=== PATIENT | male | born 2000 | race American Indian/Alaskan Native ===

== ENCOUNTER 2021-10-06 13:19 | Emergency (ER) | payer SELFPAY ==
[2021-10-06] MEDS ORDERED: SODIUM CHLORIDE 0.9% 1000 ML 1,000 ML IV ONE (13:53)
[2021-10-06] MEDS ORDERED: fentaNYL 100 MCG/2 ML INJ IV ONE (13:53)
[2021-10-06] MEDS ORDERED: ONDANSETRON 4 MG/2 ML INJ IV ONE (13:53)
--- NOTE | 2021-10-06 13:59 | Emergency Department Report ---
HPI - General Chief Complaint: Syncope Time Seen by Provider: 10/06/21 13:48 - HPI HPI: Room 5 The patient is a 21-year-old male present with chief complaint of abdominal pain. Patient states for the past 2 days he has had a constant diffuse abdominal pain and feeling as though his "stomach is caving in." Patient admits to nausea vomiting diarrhea. Patient denies history of fever. Patient denies sick contacts. The patient states his symptoms began approximate 1 hour after eating a beef to. The patient states another person also had a beef to but did not experience any symptoms. Patient currently gives his abdominal pain a score of 8/10. Apparently the patient had a syncopal episode while in the waiting room prior to being brought back to the ED room ED Past Medical Hx - Past Medical History Previous Medical History?: No - Surgical History Past Surgical History?: No - Family History Family history: no significant - Social History Smoking Status: Never Smoker Substance Use Type: None (Denies illicit drug use) - Medications Home Medications: Home Medications Medication Instructions Recorded Confirmed Last Taken Type Diphenoxylate/Atropine [Lomotil] 2 tab PO QID PRN #20 10/06/21 Unknown Rx HYDROcodone/APAP 5-325 [[place] 1 - 2 each PO Q6HR PRN #10 tablet 10/06/21 Unknown Rx 5/325] Promethazine [Phenergan] 25 mg PO Q6HR PRN #20 tab 10/06/21 Unknown Rx Promethazine [Phenergan] 25 mg HI Q6HR PRN #5 supp.rect 10/06/21 Unknown Rx ED Review of Systems ROS: Stated complaint: ABDOMINAL PAIN/VOMITING Other details as noted in HPI Constitutional: denies: fever Eyes: denies: eye pain ENT: denies: throat pain Respiratory: no symptoms reported Cardiovascular: denies: chest pain Endocrine: no symptoms reported Gastrointestinal: abdominal pain, nausea, vomiting, diarrhea Genitourinary: denies: dysuria Musculoskeletal: denies: back pain Neurological: denies: headache Physical Exam - Physical Exam Vital Signs: Vital Signs 10/06/21 13:43 Temperature 98.9 F Pulse Rate 85 Respiratory 18 Rate Blood Pressure 144/65 O2 Sat by Pulse 99 Oximetry Physical Exam: GENERAL: The patient is well-developed well-nourished male lying on stretcher appearing to be in moderate discomfort with occasional dry heaves. [] HEENT: Normocephalic. Atraumatic. Extraocular motions are intact. Patient has moist mucous membranes. NECK: Supple. Trachea midline CHEST/LUNGS: Clear to auscultation. There is no respiratory distress noted. HEART/CARDIOVASCULAR: Regular. There is no tachycardia. There is no gallop rub or murmur. ABDOMEN: Abdomen is soft, exhibits diffuse discomfort to palpation. There is no rebound or guarding. Patient has normal bowel sounds. There is no abdominal distention. SKIN: There is no rash. There is no edema. There is no diaphoresis. NEURO: The patient is awake, alert, and oriented. The patient is cooperative. The patient has no focal neurologic deficits. The patient has normal speech. GCS 15 MUSCULOSKELETAL:There is no evidence of acute injury. ED Course Vital Signs 10/06/21 13:43 Temperature 98.9 F Pulse Rate 85 Respiratory 18 Rate Blood Pressure 144/65 O2 Sat by Pulse 99 Oximetry - Reevaluation(s) Reevaluation #1: 10/06/21 19:11 Patient tolerating p.o. Patient is further history states this is the fourth episode of the same this month. Patient states he was never given a diagnosis. Patient improved at this time but we will give him follow-up with gastroenterology as well as a primary physician for further evaluation ED Medical Decision Making - Lab Data Result diagrams: 10/06/21 14:08 10/06/21 16:23 - Radiology Data Radiology results: report reviewed (CT abdomen pelvis), image reviewed (CT abdomen pelvis) [facility] [address] [place] [address] Cat Scan Report Signed Patient: GERARDO CASTRO MR#: [id number] : 1 Acct:[id number] Age/Sex: 21 / M ADM Date: 10/06/21 Loc: ED Attending Dr: Ordering Physician: CLAYTON NIX MD Date of Service: 10/06/21 Procedure(s): CT abdomen pelvis w con Accession Number(s): [id number] cc: CLAYTON NIX MD - Differential Diagnosis Gastroenteritis, vasovagal syncope, dehydration, peptic ulcer disease, panc Critical care attestation.: If time is entered above; I have spent that time in minutes in the direct care of this critically ill patient, excluding procedure time. ED Disposition Clinical Impression: Acute abdominal pain, Nausea vomiting and diarrhea Disposition: 01 HOME / SELF CARE / HOMELESS Is pt being admited?: No Does the pt Need Aspirin: No Condition: Stable Instructions: Nausea and Vomiting, Adult, [id number], Food Choices to Help Relieve Diarrhea, Adult, Diarrhea, Adult, [id number] Additional Instructions: Return to the emergency department should you develop worsening symptoms, logan bility to tolerate food or liquids, high fever or any other concerns Prescriptions: Diphenoxylate/Atropine [Lomotil] 2 tab PO QID PRN #20 PRN Reason: Diarrhea HYDROcodone/APAP 5-325 [[place] 5/325] 1 - 2 each PO Q6HR PRN #10 tablet PRN Reason: Pain Promethazine [Phenergan] 25 mg PO Q6HR PRN #20 tab PRN Reason: Nausea Promethazine [Phenergan] 25 mg HI Q6HR PRN #5 supp.rect PRN Reason: Vomiting Referrals: [facility] [Provider Group] - 3-5 Days JEANNIE OSULLIVAN MD [Staff Physician] - 3-5 Days (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 Please follow-up with him for further evaluation) Time of Disposition: 19:13
[2021-10-06 14:16] LABS: Basophils % (Auto) 0.1 % (0.0-1.8); Hematocrit 46.5 % (35.5-45.6); Hemoglobin 15.9 gm/dl (11.8-15.2); Lymphocytes # (Auto) 1.1 K/mm3 (1.2-5.4); Lymphocytes % (Auto) 8.2 % (13.4-35.0); Mean Corpuscular HGB Conc 34 % (32-34); Mean Corpuscular Volume 93 fl (84-94); Monocytes # (Auto) 0.5 K/mm3 (0.0-0.8); Monocytes % (Auto) 3.9 % (0.0-7.3); Platelet Count 237 K/mm3 (140-440); Red Cell Distribution Width 13.7 % (13.2-15.2)
[2021-10-06 15:03] LABS: Alanine Aminotransferase TNR units/L (7-56); BUN/Creatinine Ratio TNR; Blood Urea Nitrogen TNR mg/dL (9-20); Calcium TNR mg/dL (8.4-10.2)
[2021-10-06 15:04] LABS: Albumin TNR g/dL (3.9-5); Hemolysis Index TNR
[2021-10-06 17:20] LABS: Alanine Aminotransferase 78 units/L (7-56); Albumin 4.6 g/dL (3.9-5); BUN/Creatinine Ratio 17; Blood Urea Nitrogen 15 mg/dL (9-20); Calcium 9.1 mg/dL (8.4-10.2); Hemolysis Index 3
--- NOTE | 2021-10-06 18:31 | Cat Scan Report ---
CT ABDOMEN AND PELVIS WITH INTRAVENOUS CONTRAST INDICATION / CLINICAL INFORMATION: Diffuse abdominal pain with nausea and vomiting. TECHNIQUE: 100 cc Omnipaque [address] scans at this location are performed using CT d ose reduction for ALARA by means of automated exposure control. COMPARISON: None available. FINDINGS: ABDOMEN: The study is technically difficult due to a paucity of intra-abdominal fat. The liver, splee n, gallbladder, bile ducts, pancreas, adrenal glands, kidneys and bowel demonstrate no significant ab normality. There is no evidence of bowel obstruction, wall thickening or free air. No adenopathy is p resent. No acute vascular abnormality is seen. The lung bases are clear. PELVIS: The distal ureters and urinary bladder are normal. Portions of a normal appendix are identifi ed. There is no evidence of diverticulitis. No abnormal mass or fluid collection is seen. I do not id entify a hernia. No acute osseous abnormality is present. IMPRESSION: No acute abnormality is identified. Signer Name: Magdi Wolfe MD Signed: 10/06/2021 6:26 PM Workstation Name: [id number]
[2021-10-06 19:41] VITALS: BP 108/62
== END 2021-10-06 19:41 | disposition home or self-care (01) ==
LOC: ED 13:19
DX: R10.84 Generalized abdominal pain (principal); R11.2 Nausea with vomiting, unspecified; R19.7 Diarrhea, unspecified
CPT/HCPCS: 36415; 74177; 80053; 82962; 83690; 85025; 96361; 96374; 96375; 99284; J2405; J3010; J7030; Q9967